=== PATIENT | female | born 1985 | race Two or more races ===

== ENCOUNTER → 2018-02-15 | Outpatient (CLI) | payer SELFPAY | LOC: OD 14:56 | PROVIDERS: ATTEND Student in an Organized Health Care Education/Training Program | DX: N96 Recurrent pregnancy loss (principal) | CPT/HCPCS: 36415; 81241; 84702; 85210 ==

== ENCOUNTER → 2018-03-05 | Outpatient (CLI) | payer SELFPAY ==
[2018-03-07 07:10] LABS: PROTEIN S FREE 76 % (57-157); PROTEIN S FUNCTIONAL 68 % (63-140); PROTEIN S TOTAL 78 % (60-150)
[2018-03-08 15:38] LABS: PROTEIN C ANTIGEN 78 % (60-150)
[2018-03-10 06:16] LABS: PROTEIN C ACTIVITY 103 % (73-180)
== END ==
LOC: OD 10:46
PROVIDERS: ATTEND Student in an Organized Health Care Education/Training Program
DX: N96 Recurrent pregnancy loss (principal)
CPT/HCPCS: 36415; 84702; 85302; 85305; 85306; 86900; 86901

== ENCOUNTER 2019-01-07 06:29 | Inpatient (IN) | payer SELFPAY ==
[2019-01-07] MEDS ORDERED: CEFAZOLIN 2 GM/D5W RTU 2 GM/50 ML RTUPB IV PRN (06:40)
[2019-01-07] MEDS ORDERED: RINGERS SOLUTION,LACTATED 1,000 ML IV ONE (06:45)
[2019-01-07 07:21] LABS: ABSOLUTE BASOPHILS # (AUTO) 0.1 10^3/uL (0.0-0.2); ABSOLUTE EOSINOPHILS # (AUTO) 0.3 10^3/uL (0.0-0.6); ABSOLUTE LYMPHOCYTES (AUTO) 2.2 10^3/uL (0.5-4.7); ABSOLUTE MONOCYTES (AUTO) 0.7 10^3/uL (0.1-1.4); ABSOLUTE NEUT (AUTO) 4.2 10^3/uL (1.7-8.2); BASOPHILS % (AUTO) 1.1 % (0-2); EOSINOPHILS % (AUTO) 3.4 % (0-6); HEMATOCRIT 32.2 % (36.0-47.0); LYMPHOCYTES % (AUTO) 29.4 % (13-45); MEAN CORPUSCULAR HEMOGLOBIN 29.5 pg (27.0-33.4); MEAN CORPUSCULAR HGB CONC 34.2 g/dL (32.0-36.0); MEAN CORPUSCULAR VOLUME 86 fl (80-97); MONOCYTES % (AUTO) 9.2 % (3-13); PLATELET COUNT 176 10^3/uL (150-450); RED BLOOD COUNT 3.73 10^6/uL (3.72-5.28); RED CELL DISTRIBUTION WIDTH 15.3 % (11.5-14.0); SEGMENTED NEUTROPHILS % (AUTO) 56.9 % (42-78); TOTAL CELLS COUNTED % (AUTO) 100 %; WHITE BLOOD COUNT 7.4 10^3/uL (4.0-10.5)
[2019-01-07] MEDS: RINGERS SOLUTION,LACTATED 1,000 ML IV PRN ×2 (08:45→21:41)
[2019-01-07 09:08] LABS: APPEARANCE,URINE SLIGHTLY-CLOUDY; BILIRUBIN,URINE NEGATIVE (NEGATIVE); COLOR,URINE STRAW; GLUCOSE, URINE NEGATIVE (NEGATIVE); KETONES,URINE NEGATIVE (NEGATIVE); LEUKOCYTE ESTERASE,URINE NEGATIVE (NEGATIVE); NITRITE,URINE NEGATIVE (NEGATIVE); PROTEIN,URINE NEGATIVE (NEGATIVE); URINE SPECIFIC GRAVITY 1.006; UROBILINOGEN,URINE NEGATIVE mg/dL (<2.0)
[2019-01-07] MEDS ORDERED: MISOPROSTOL 0.2 MG TABLET ONE ×3 (09:18→10:37)
[2019-01-07] MEDS ORDERED: OXYTOCIN 10 UNIT/ML VIAL ONE ×2 (09:18→09:42)
[2019-01-07] MEDS ORDERED: PROPOFOL INJ 200 MG/20 ML VIAL IV ONE (09:19)
[2019-01-07 09:25] LABS: URINE AMPHETAMINES SCREEN NEGATIVE; URINE BARBITURATES SCREEN NEGATIVE; URINE BENZODIAZEPINES SCREEN NEGATIVE; URINE COCAINE SCREEN NEGATIVE; URINE MARIJUANA (THC) SCREEN NEGATIVE; URINE METHADONE SCREEN NEGATIVE; URINE PHENCYCLIDINE SCREEN NEGATIVE
[2019-01-07] MEDS ORDERED: CARBOPROST TROMETHAMINE INJ 250 MCG/1 ML AMPULE ONE (09:32)
[2019-01-07] MEDS ORDERED: METHYLERGONOVINE MALEATE INJ/PF 0.2 MG/1 ML AMPULE ONE (09:32)
[2019-01-07] MEDS ORDERED: MIDAZOLAM 2 MG/2 ML INJ ONE (09:43)
[2019-01-07] MEDS ORDERED: EPHEDRINE SULFATE INJ 50 MG/1 ML AMPULE ONE (09:43)
[2019-01-07] MEDS ORDERED: OXYTOCIN/NORMAL SALINE 20 UNIT/1,000 ML RTUINJ ONE (09:43)
[2019-01-07] MEDS ORDERED: KETOROLAC TROMETHAMINE INJ/PF 30 MG/1 ML SDV ONE (09:43)
[2019-01-07] MEDS ORDERED: FENTANYL CITRATE INJ/PF 100 MCG/2 ML AMPUL ONE (09:43)
[2019-01-07] MEDS ORDERED: ACETAMINOPHEN 1,000 MG/100 ML RTUPB IV ONE (09:44)
[2019-01-07] MEDS ORDERED: ONDANSETRON HCL INJ/PF 4 MG/2 ML SDV ONE ×2 (09:44→12:35)
[2019-01-07] MEDS ORDERED: PROMETHAZINE HCL INJ 25 MG/1 ML VIAL IV PRN ×3 (10:38→11:42)
[2019-01-07] MEDS ORDERED: OXYCODONE-ACETAMINOPHEN 5-325 MG TABLET PO PRN ×3 (10:38→11:42)
[2019-01-07] MEDS ORDERED: MEPERIDINE HCL/PF INJ 25 MG/1 ML DISP.SYRIN IV PRN (10:38)
[2019-01-07] MEDS ORDERED: DIPHENHYDRAMINE HCL 50 MG/ML VIAL IV PRN (10:38)
[2019-01-07] MEDS ORDERED: FENTANYL CITRATE INJ/PF 100 MCG/2 ML AMPUL IV PRN ×3 (10:38)
[2019-01-07] MEDS ORDERED: MEPERIDINE HCL/PF INJ 25 MG/1 ML DISP.SYRIN ONE (11:14)
--- NOTE | 2019-01-07 11:31 | Brief Operative Note ---
BRIEF OPERATIVE REPORT DATE OF SURGERY: 01/07/19 TIME OF SURGERY: 10:00 PREOPERATIVE DIAGNOSIS: , 39+1ega, H/o 5 sections, Declines BTL, mulitple prior incisions on skin noted POSTOPERATIVE DIAGNOSIS: CATHY delivered, uterine window SURGEON: KRISTINA GONZALEZ FINDINGS: VFI delivered at 1009, Apgars 8/9, weight 2640g (5#13oz), No musculature or peritoneum between fascia and uterus, no lower uterine segment except bladder flap over the prior uterine scar, Incision made above the lower uterine segment prior scar. Interceed and Surgicel placed. IVF 1300ml, UOP 250ml COMPLICATIONS: None ESTIMATED BLOOD LOSS: 350ml TISSUE REMOVED OR ALTERED: placenta and cord not sent to pathology TECHNICAL PROCEDURE: Repeat section, scar revision
[2019-01-07] MEDS ORDERED: MEASLES,MUMPS&RUBELLA VACC/PF 0.5 ML VIAL SUBCUT PRN (11:42)
[2019-01-07] MEDS ORDERED: HYDROMORPHONE HCL INJ/PF 2 MG/ML AMPULE IV PRN (11:42)
[2019-01-07] MEDS ORDERED: ACETAMINOPHEN 1,000 MG/100 ML RTUPB IV PRN (11:42)
[2019-01-07] MEDS ORDERED: DIPH/PERTUSS(ACELL)/TETANUS VAC/PF 0.5 ML SYR (>=10YO) IM PRN (11:42)
[2019-01-07] MEDS ORDERED: OXYTOCIN/NORMAL SALINE 20 UNIT/1,000 ML RTUINJ IV PRN (11:42)
[2019-01-07] MEDS ORDERED: ACETAMINOPHEN 325 MG TABLET PO PRN (11:42)
[2019-01-07] MEDS ORDERED: SIMETHICONE 80 MG TAB.CHEW PO PRN (11:42)
[2019-01-07] MEDS ORDERED: HYDROMORPHONE HCL INJ/PF 2 MG/ML AMPULE ONE (12:15)
[2019-01-07] MEDS ORDERED: PHENYLEPHRINE HCL INJ/PF 10 MG/1 ML SDV ONE (12:24)
[2019-01-07] MEDS: ONDANSETRON HCL INJ/PF 4 MG/2 ML SDV IV PRN ×2 (12:27→13:08)
[2019-01-07] MEDS ORDERED: KETOROLAC TROMETHAMINE INJ/PF 30 MG/1 ML SDV IV SCH (14:00)
[2019-01-07] MEDS ORDERED: METOCLOPRAMIDE HCL INJ/PF 10 MG/2 ML SDV ONE (14:18)
[2019-01-07] MEDS: OXYCODONE-ACETAMINOPHEN 5-325 MG TABLET PO PRN (14:19)
--- NOTE | 2019-01-07 15:13 | Operative Report ---
Operative Report DATE OF SURGERY: 01/07/19 PREOPERATIVE DIAGNOSIS: , 39+1ega, H/o 5 sections, Declines B TL, mulitple prior incisions on skin noted POSTOPERATIVE DIAGNOSIS: CATHY delivered, uterine window OPERATION: Repeat section, scar revision SURGEON: KRISTINA GONZALEZ ANESTHESIA: Spinal TISSUE REMOVED OR ALTERED: placenta and cord not sent to pathology COMPLICATIONS: None ESTIMATED BLOOD LOSS: 350 INTRAOPERATIVE FINDINGS: VFI delivered at 1009, Apgars 8/9, weight 2640g (5#13oz), No musculature or peritoneum between fascia and uterus, no lower uterine segment except bladder flap over the prior uterine scar, Incision made above the lower uterine segment prior scar. Interceed and Surgicel placed. IVF 1300ml, UOP 250ml. Reviewed with patient that should she get in the future that would recommend section at 37wks. PROCEDURE: Anesthesia provider: [Janis CAMPOS, Allegra Freeman CRNA] Urine output: [1300ml] IV fluids: [250ml] Indications: [33yo with history of section times five presents at 39+1ega presents for repeat section. She was scheduled for Bilateral tubal ligation. Parthrowan used to consent patient and she declines bilateral tubal ligation and desires IUD for contraception . She was counseled regarding the risks of another after having six sections including: abruption, uterine rupture, /mobidity, maternal /morbidity, hysterectomy, transfusion. She was counseled also that section today also carries those risks. Type and cross for 2 units with hold and hemorrhage kit reviewed with patient and ready. The risks/benefits/alternatives were reviewed and she desires to proceed with planned repeat section.] Procedure: The patient was taken to the operating room where spinal anesthesia was obtained and found to be adequate. She was then prepped and draped in the normal sterile fashion and placed in the dorsal supine position with a leftward tilt. A Pfannenstiel skin incision was then made and carried through to the underlying layers of the fascia with the scalpel. The fascia was incised in the midline and the incision extended bluntly. Immediately upon entry into the fascia uterus was noted. There was no rectus muscle or peritoneum between the fascia and the uterus. The bladder blade was inserted and immediately evident was very thin lower uterine segment and it appeared that bladder reflection was holding the integrity of the lower uterine segment together. Since the lower uterine segment was not existent transverse incision made above the lower uterine segment with the scalpel. The uterine incision was then extended bluntly. The bladder blade was removed and the infant's head was delivered from cephalic presentation atraumatically. The nose and mouth were suctioned and the cord doubly clamped and cut. And the infant was handed off to waiting pediatricians. The placenta was then delivered spontaneously and the uterus exteriorized and cleared of all clots and debris. The uterine incision was then repaired with 1- 0 Vicryl in a running locked fashion. A second layer of the same suture was used to obtain hemostasis via imbrication of the initial layer. The bladder flap was then repaired with 3-0 chromic in a running fashion. The uterus was returned to the patient's abdomen and Surgicel was placed overlying bladder flap for hemostasis and Interceed was placed overlying the uterine incision to prevent adhesions. The gutters were cleared of all clots and debris. All operative sites were noted to be hemostatic. The fascia was reapproximated with 0 Vicryl in a running fashion from each lateral edge to the midline. The skin was closed with 3-0 Monocryl in a running subcuticular fashion with overlying Dermabond for additional dressing as well as wound closure. The patient tolerat ed the procedure well. Sponge lap needle and instrument counts are correct times 2. 2 g of Ancef were given prior to skin incision. The patient was taken to the recovery area awake and in stable condition.
--- NOTE | 2019-01-07 15:13 | PDOC DELIVERY SUMMARY ---
Delivery Summary - Maternal Hx : X Hx Para: V Hx # Term Pregnancies: 5 Hx # Pregnancies: 0 Hx Total # of Abortions (Sponateous & Elective): 3 Number of Living Children: 5 KHLOE: 01/13/19 Gestational Age: 39+1 Risk Factors: Previous - x 5 Risk Factors/Complications Other:: history of 5 sections Ruptured Membranes: AROM Time of Rupture: 10:08 Fluids: Clear - Delivery Labor: Not In Labor Presentation: Vertex Heart Rate Monitoring: Done Pre-Operatively Uterine Contraction Monitoring: External Support Person Present: Yes Location: OR : Scheduled, Repeat Placenta: Within Normal Limits Placenta Description: normal Number of Vessels (Cord): 3 Nuchal Cord: No Delivery of Placenta Date: 01/07/19 Delivery of Placenta Time: 10:09 Estimated Blood Loss: 350 - Medications Type of Anesthesia:: Spinal - Delivery Medications Delivery Meds: Cytotec 1000mcg Per Rectum/Vagina - Infant Assess and Care Baby 1 Female Delivery of Infant Date: 01/07/19 Delivery of Infant Time: 10:09 at 1 minute: 8 at 5 minutes: 9 Preprinted Number On Band: [id number] Skin to Skin: No To Nursery At: 10:19 - Delivery Personnel Molded Frames Assembler: MARELY POPE Nursery RN: GERDA VANCE RN: RENAY HEBERT MD: KRISTINA GONZALEZ
[2019-01-07] MEDS ORDERED: MISOPROSTOL 0.1 MG TABLET PR ONE (15:30)
[2019-01-07] MEDS: DOCUSATE SODIUM 100 MG CAPSULE PO SCH (17:54)
[2019-01-07] MEDS: KETOROLAC TROMETHAMINE INJ/PF 30 MG/1 ML SDV IV SCH (17:55)
[2019-01-07] MEDS ORDERED: RINGERS SOLUTION,LACTATED 1,000 ML IV PRN (20:23)
[2019-01-08] MEDS: METOCLOPRAMIDE HCL INJ/PF 10 MG/2 ML SDV IV PRN (02:28)
[2019-01-08] MEDS: KETOROLAC TROMETHAMINE INJ/PF 30 MG/1 ML SDV IV SCH (02:28)
[2019-01-08] MEDS ORDERED: IBUPROFEN 800 MG TABLET PO SCH (04:00)
[2019-01-08 06:38] LABS: HEMATOCRIT 31.2 % (36.0-47.0); HEMOGLOBIN 10.7 g/dL (12.0-15.5); MEAN CORPUSCULAR HEMOGLOBIN 29.5 pg (27.0-33.4); MEAN CORPUSCULAR HGB CONC 34.3 g/dL (32.0-36.0); MEAN CORPUSCULAR VOLUME 86 fl (80-97); PLATELET COUNT 175 10^3/uL (150-450); RED BLOOD COUNT 3.62 10^6/uL (3.72-5.28); WHITE BLOOD COUNT 11.8 10^3/uL (4.0-10.5)
[2019-01-08] MEDS: OXYCODONE-ACETAMINOPHEN 5-325 MG TABLET PO PRN ×2 (09:21→18:38)
[2019-01-08] MEDS: IBUPROFEN 800 MG TABLET PO SCH ×3 (09:22→21:29)
[2019-01-08] MEDS: PRENATAL VITAMIN W DHA CAPSULE PO SCH (09:23)
[2019-01-08] MEDS: DOCUSATE SODIUM 100 MG CAPSULE PO SCH ×2 (09:23→18:38)
--- NOTE | 2019-01-08 11:54 | PDOC PROGRESS REPORT ---
Subjective-OB Progress Note for:: 01/08/19 - POD #1, s/p Rpt , doing well this morning, no complaints, A+, Rubella Immune, , Physical Exam (OB) Vital Signs: Temp Pulse Resp BP Pulse Ox 98.2 F 86 16 90/51 L 96 01/08/19 11:38 01/08/19 11:38 01/08/19 11:38 01/08/19 11:38 01/08/19 11:38 Intake & Output 01/07/19 01/08/19 01/09/19 06:59 06:59 06:59 Intake Total 2146 750 Output Total 1175 Balance 971 750 Weight 70.307 kg - General General Appearance: Appears well, Alert In distress: None - PIH/Pre-Eclampsia Clonus: Negative Headache: Absent Epigastric Pain: No Visual Changes: No - Dressing Removed: No Incision: Dressing - Lochia Lochia Amount: Small 10-25 ml Lochia Color: Rubra/Red - Abdomen Description: Soft, Round Fundal Description: Firm Fundal Height: u/u - u/2 - HEENT Eyes: Normal Mucous membrane: Normal - Respiratory Respiratory Status: No respiratory distress Breath sounds: Clear - Cardiovascular Rhythm: Regular Heart Sounds: Normal auscultation - Abdominal Inspection: Normal Distension: No distension Tenderness: Nontender Abdominal Notes: +bowel sounds - Genitourinary Genitourinary Note: voiding - Extremities Upper extremity: Normal inspection Lower extremities: Normal inspection - Neurological Cognition: Normal Orientation: AAOx4 - Psychological Associated symptoms: Normal affect, Normal mood - Skin Skin Temperature: Warm Skin Moisture: Dry Objective-Diagnostic Laboratory: 01/08/19 06:25 01/08/19 06:25 WBC 11.8 H RBC 3.62 L Hgb 10.7 L Hct 31.2 L MCV 86 MCH 29.5 MCHC 34.3 RDW 15.0 H Plt Count 175 Assessment and Plan(PN) - Assessment and Plan (1) Grand multiparity Is this a current diagnosis for this admission?: Yes (3) Status post repeat low transverse section Is this a current diagnosis for this admission?: Yes - Time Spent with Patient Time with patient: Less than 15 minutes Medications reviewed and adjusted accordingly: Yes - Disposition Anticipated Discharge: Home Within: within 48 hours
[2019-01-09] MEDS: IBUPROFEN 800 MG TABLET PO SCH ×2 (04:29→08:32)
[2019-01-09] MEDS: OXYCODONE-ACETAMINOPHEN 5-325 MG TABLET PO PRN (08:32)
[2019-01-09] MEDS: METOCLOPRAMIDE HCL INJ/PF 10 MG/2 ML SDV IV PRN (09:55)
[2019-01-09] MEDS: PRENATAL VITAMIN W DHA CAPSULE PO SCH (09:55)
[2019-01-09] MEDS: DOCUSATE SODIUM 100 MG CAPSULE PO SCH (09:55)
--- NOTE | 2019-01-09 10:25 | PDOC PROGRESS REPORT ---
Subjective-OB Progress Note for:: 01/09/19 Subjective: Doing well, holding baby, passing gas, feels tired, states she has no help at home, eating well, voiding Physical Exam (OB) Vital Signs: Temp Pulse Resp BP Pulse Ox 98.1 F 88 17 97/64 L 93 01/09/19 08:48 01/09/19 08:48 01/09/19 08:48 01/09/19 08:48 01/09/19 08:48 Intake & Output 01/08/19 01/09/19 01/10/19 06:59 06:59 06:59 Intake Total 2146 1170 Output Total 1175 Balance 971 1170 - PIH/Pre-Eclampsia Clonus: Negative Headache: Absent Epigastric Pain: No Visual Changes: No - Dressing Removed: No Incision: Dressing Closure Type: Steri-Strips - Lochia Lochia Amount: Scant < 10 ml Lochia Color: Rubra/Red - Abdomen Description: Tender Fundal Description: Firm, Midline Fundal Height: u/u - u/2 Objective-Diagnostic Laboratory: 01/08/19 06:25 Assessment and Plan(PN) - Assessment and Plan (1) Grand multiparity Is this a current diagnosis for this admission?: Yes (2) Status post repeat low transverse section Is this a current diagnosis for this admission?: Yes - Time Spent with Patient Time with patient: Less than 15 minutes Medications reviewed and adjusted accordingly: Yes - Disposition Anticipated Discharge: Home Within: within 24 hours
--- NOTE | 2019-01-09 10:28 | PDOC DISCHARGE SUMMARY ---
Final Diagnosis Discharge Date: 01/09/19 - Final Diagnosis (1) Grand multiparity Is this a current diagnosis for this admission?: Yes (2) Status post repeat low transverse section Is this a current diagnosis for this admission?: Yes Discharge Data - Discharge Medication Prescriptions: Oxycodone HCl/Acetaminophen [Percocet 5-325 mg Tablet] 1 tab PO Q4HP PRN #20 tablet PRN Reason: Ibuprofen [Motrin 800 mg Tablet] 800 mg PO Q6A #60 tablet Home Medications: Ibuprofen [Motrin 800 mg Tablet] 800 mg PO Q6A #60 tablet 01/09/19 Oxycodone HCl/Acetaminophen [Percocet 5-325 mg Tablet] 1 tab PO Q4HP PRN #20 tablet 01/09/19 Gestational Age: 39 Reason(s) for Admission: Ceasarean Section-Repeat Procedures: NST, Ultrasound Intrapartum Procedure(s): : Low Cervical, Transverse - [place] Data Baby 1 Female Home with Mother: Yes Complications: No - Diagnosis Test Laboratory: Temp Pulse Resp BP Pulse Ox 98.1 F 88 17 97/64 L 93 01/09/19 08:48 01/09/19 08:48 01/09/19 08:48 01/09/19 08:48 01/09/19 08:48 01/07/19 01/07/19 01/08/19 07:10 08:45 06:25 RBC 3.73 3.62 L Hgb 11.0 L 10.7 L Hct 32.2 L 31.2 L Urine Opiates Screen NEGATIVE - Discharge information/Instructions Discharge Activity: Activity As Tolerated, No Lifting Over 10 Pounds, No Lifting/Push/Pulling, Pelvic Rest Discharge Diet: As Tolerated, Regular Disposition: HOME, SELF-CARE Follow up with: [facility] in: 4, Days
[2019-01-09 13:28] VITALS: BP 96/55
== END 2019-01-09 16:00 | disposition home or self-care (01) | DRG 788 ==
LOC: 2S 06:29
PROVIDERS: ADMIT Student in an Organized Health Care Education/Training Program; ATTEND Student in an Organized Health Care Education/Training Program
PROC: 4A1HXCZ Monitoring of Products of Conception, Cardiac Rate, External Approach (ICD-10-PCS; 2019-01-07)
PROC: 10D00Z1 Extraction of Products of Conception, Low, Open Approach (ICD-10-PCS; principal; 2019-01-07 09:15)
DX: O34.211 Maternal care for low transverse scar from previous cesarean delivery (principal); Z37.0 Single live birth; Z3A.39 39 weeks gestation of pregnancy
CPT/HCPCS: 1961; 36415; 59025; 80307; 81001; 85025; 85027; 86850; 86900; 86901; 94799; C1765; J0131; J0690; J1170; J1885; J2175; J2210; J2250; J2370; J2405; J2590; J2704; J2765; J3010; J3490; J7120

== ENCOUNTER → 2019-02-05 | Outpatient (CLI) | payer MEDICAID ==
[2019-02-05 15:28] LABS: ALANINE AMINOTRANSFERASE 28 U/L (9-52); ALBUMIN 4.1 g/dL (3.5-5.0); ALKALINE PHOSPHATASE 71 U/L (38-126); ANION GAP 11 (5-19); ASPARTATE AMINO TRANSFERASE 26 U/L (14-36); BILIRUBIN,DIRECT 0.2 mg/dL (0.0-0.4); BILIRUBIN,TOTAL 0.3 mg/dL (0.2-1.3); BLOOD UREA NITROGEN 7 mg/dL (7-20); CALCIUM 9.4 mg/dL (8.4-10.2); CARBON DIOXIDE 24 mmol/L (22-30); CHLORIDE 105 mmol/L (98-107); GLUCOSE 87 mg/dL (75-110); POTASSIUM 4.2 mmol/L (3.6-5.0); SODIUM 139.6 mmol/L (137-145); TOTAL PROTEIN 7.7 g/dL (6.3-8.2)
== END ==
LOC: OD 13:44
PROVIDERS: ATTEND Student in an Organized Health Care Education/Training Program
DX: L29.9 Pruritus, unspecified (principal); Z11.3 Encounter for screening for infections with a predominantly sexual mode of transmission
CPT/HCPCS: 36415; 80053; 82239; 87491; 87591

== ENCOUNTER → 2019-07-07 | Outpatient (CLI) | payer SELFPAY | LOC: OD 14:21 | PROVIDERS: ATTEND Allergy & Immunology | DX: L23.9 Allergic contact dermatitis, unspecified cause (principal); L29.9 Pruritus, unspecified; Z88.6 Allergy status to analgesic agent | CPT/HCPCS: 36415; 82785; 83520; 86003 ==